=== PATIENT | male | born 2000 | race African-American/Black ===

== ENCOUNTER 2022-03-27 14:21 | Emergency (ER) | payer OTHER, MEDICAID ==
[2022-03-27] MEDS: Morphine 2 MG/ML SYRINGE IM ONE ×2 (14:32→15:08)
[2022-03-27] MEDS: Lidocaine 1% 5 ML VIAL INJECT ONE (14:55)
[2022-03-27] MEDS: Bacitracin/Neomycin/Polymyxin B Oint 0.9 GM U/D Packet TOP PRN (15:13)
== END 2022-03-27 17:00 | disposition home or self-care (01) ==
LOC: LL.ED 14:21
DX: S62.621A Displaced fracture of middle phalanx of left index finger, initial encounter for closed fracture (principal); S67.22XA Crushing injury of left hand, initial encounter; S67.191A Crushing injury of left index finger, initial encounter; S61.213A Laceration without foreign body of left middle finger without damage to nail, initial encounter; W23.0XXA Caught, crushed, jammed, or pinched between moving objects, initial encounter
CPT/HCPCS: 12001; 73120; 96372; 99283; J2270